=== PATIENT | female | born 1965 | race Caucasian/White ===

== ENCOUNTER 2016-02-15 15:41 | Inpatient (IN) | payer MEDICARE, MEDICAID ==
[~2016-02-15] VITALS: Ht 167.6 cm; Wt 92.3 kg
[~2016-02-15 15:41] MED LIST: ALPR0.5T7; BECL0.07; CALC667C; CALCIUM ACETATE 667 MG GELCAP; CARB25TA75; CARB25TA77 OR; CLOP75TA41; DIPH-232; DOCU1CAP24; FENO5TAB; FLUC200T35; FLUO-125; FLUO1TAB3; FLUO20TA; FURO40TA4; GABA300C; GABA300C8; HEPARIN; HYDR-2616; HYDRTAB57; LEVO200T45; LISI-646; LORA-205; LOVAZA; NIFE30TA76; NITR100C; OMEG1CAP10; OMEP20TA; OMEPRAZOLE DR 20 MG CAPSULE; PLAVIX; PRENCAP2; SERDISK; SEVE800T8; SEVE800T8 PO; VARE1TAB
[2016-02-15] MEDS ORDERED: SODIUM CHLORIDE 0.9% 1,000 ML IV ONE ×2 (16:23→23:45)
[2016-02-15] MEDS ORDERED: LEVOFLOXACIN 500 MG/100 ML PREMIX BAG IV ONE (16:30)
[2016-02-15 17:03] LABS: Basophils # (auto) 0.1 uL; Basophils % (auto) 0.3 % (0.0-2.0); DEFINITIVE VIEW TRANSMISSION; Eosinophils # (auto) 0.3 uL; Eosinophils % (auto) 1.6 % (0.0-7.0); Hematocrit 30.3 % (36.0-46.0); Hemoglobin 9.4 g/dL (12.2-16.2); Lymphocytes # (auto) 1.4 uL; Lymphocytes % (auto) 8.9 % (10.0-50.0); Mean Corpuscular Hemoglobin 30.4 pg (28.0-32.0); Mean Corpuscular Volume 97.9 fL (80.0-100.0); Mean Platelet Volume 7.3 fL (7.4-10.4); Monocytes # (auto) 0.8 uL; Monocytes % (auto) 4.8 % (0.0-12.0); Neutrophils # (auto) 13.8 uL; Neutrophils % (auto) 84.4 % (37.0-80.0); Platelet Count (auto) 500 10^3/uL (140-450); Red Cell Distribution Width 19.8 % (11.6-16.0); White Blood Cell 16.3 10^3/uL (4.4-10.8)
[2016-02-15 17:18] LABS: Albumin 2.3 g/dL (3.4-5.0); Anion Gap 11 (5-15); Aspartate Aminotransferase 18 U/L (15-37); BUN/Creatinine Ratio 5.8; Blood Urea Nitrogen 23 mg/dL (7-18); Calcium 8.6 mg/dL (8.5-10.1); Carbon Dioxide 30 mmol/L (21-32); Chloride 97 mmol/L (98-107); GFR African American 16 mL/min; GFR Non-African American 13 mL/min; Glucose 130 mg/dL (74-106); Potassium 3.7 mmol/L (3.5-5.1); Sodium 138 mmol/L (136-145)
[2016-02-15 17:21] LABS: Alkaline Phosphatase 129 U/L (45-117); Bilirubin, Total 0.7 mg/dL (0.2-1.0); Total Protein 6.2 g/dL (6.4-8.2)
[2016-02-15 17:39] LABS: Partial Thromboplastin Time 66.1 sec (22.64-33.71)
[2016-02-15 17:46] LABS: Anisocytosis Slight; Platelet Estimate Increased
[2016-02-15 17:47] LABS: Polychromasia Slight
[2016-02-15 17:57] LABS: Prothrombin Time 83.4 sec (9.37-12.3)
[2016-02-15 18:12] LABS: INR 8.1 (0.9-1.15)
[2016-02-15] MEDS ORDERED: ONDANSETRON HCL 4 MG/2 ML VIAL IV ONE (21:15)
[2016-02-15] MEDS ORDERED: MORPHINE SULFATE 4 MG/ML SYRG IV ONE (21:15)
[2016-02-15] MEDS ORDERED: HYDROcodone-ACET 10/325MG TAB PO ONE (21:30)
[2016-02-15] MEDS ORDERED: AZITHROMYCIN 500MG/D5W 250ML 250 ML IV ONE (23:45)
[2016-02-15] MEDS ORDERED: PANTOPRAZOLE SODIUM 40 MG/10 ML VIAL IV ONE (23:45)
[2016-02-15] MEDS: cefTRIAXone 1GM/50ML D5W 50 ML IV ONE (23:56)
[2016-02-15] MEDS: HYDROmorphone HCL 2 MG/ML VL IV PRN (23:59)
[2016-02-15] MEDS: ONDANSETRON HCL 4 MG/2 ML VIAL IV PRN (23:59)
[2016-02-16] MEDS ORDERED: LACTULOSE 20Gm/30ML SOLN PO PRN
[2016-02-16] MEDS ORDERED: MORPHINE SULF INJ 2 MG/ML SYRINGE 1ML IV PRN
[2016-02-16] MEDS ORDERED: NITROGLYCERIN 0.4 MG SL TAB SL PRN
[2016-02-16] MEDS: cefTRIAXone 1GM/50ML D5W 50 ML IV ONE (01:31)
[2016-02-16] MEDS: ALBUTEROL SULF 2.5 MG/0.5ML(0.5%) NEB SOLN NEB SCH ×6 (02:30→22:38)
[2016-02-16] MEDS: IPRATROPIUM BROM 0.5 MG/2.5ML INH SOL NEB SCH ×6 (02:30→22:38)
[2016-02-16 03:54] LABS: Basophils # (auto) 0.1 uL; Basophils % (auto) 0.5 % (0.0-2.0); DEFINITIVE VIEW TRANSMISSION; Eosinophils # (auto) 0.4 uL; Eosinophils % (auto) 2.4 % (0.0-7.0); Hematocrit 28.6 % (36.0-46.0); Hemoglobin 8.9 g/dL (12.2-16.2); Lymphocytes # (auto) 1.1 uL; Lymphocytes % (auto) 6.4 % (10.0-50.0); Mean Corpuscular Hemoglobin 30.3 pg (28.0-32.0); Mean Corpuscular Volume 97.6 fL (80.0-100.0); Mean Platelet Volume 7.1 fL (7.4-10.4); Monocytes # (auto) 0.6 uL; Monocytes % (auto) 3.4 % (0.0-12.0); Neutrophils # (auto) 14.4 uL; Neutrophils % (auto) 87.3 % (37.0-80.0); Platelet Count (auto) 447 10^3/uL (140-450); SUSPECT VIEW TRANSMISSION; White Blood Cell 16.5 10^3/uL (4.4-10.8)
[2016-02-16 04:11] LABS: Anion Gap 11 (5-15); Aspartate Aminotransferase 16 U/L (15-37); BUN/Creatinine Ratio 6.1; Blood Urea Nitrogen 26 mg/dL (7-18); Calcium 8.2 mg/dL (8.5-10.1); Carbon Dioxide 28 mmol/L (21-32); Chloride 99 mmol/L (98-107); GFR African American 14 mL/min; GFR Non-African American 12 mL/min; Glucose 155 mg/dL (74-106); Potassium 3.7 mmol/L (3.5-5.1); Sodium 138 mmol/L (136-145)
[2016-02-16 04:33] LABS: Red Cell Distribution Width 20.3 % (11.6-16.0)
[2016-02-16 05:17] LABS: Prothrombin Time 73.2 sec (9.37-12.3)
[2016-02-16 05:19] LABS: INR 7.11 (0.9-1.15); Partial Thromboplastin Time 74.5 sec (22.64-33.71)
[2016-02-16 05:24] LABS: Alkaline Phosphatase 118 U/L (45-117); Bilirubin, Total 0.6 mg/dL (0.2-1.0); Total Protein 5.8 g/dL (6.4-8.2)
[2016-02-16 05:33] LABS: Cholesterol 61 mg/dL (<200); LDL Cholesterol 37 mg/dL (<100); Triglycerides 121 mg/dL (<150)
[2016-02-16] MEDS ORDERED: PHYTONADIONE (VIT K)10 MG/ML 1ML VIAL SUBCUT ONE (05:45)
[2016-02-16] MEDS: ONDANSETRON HCL 4 MG/2 ML VIAL IV PRN ×2 (07:51→16:20)
[2016-02-16 08:24] LABS: Anisocytosis Moderate; Platelet Estimate Adequate
[2016-02-16 08:25] LABS: Polychromasia Slight; Schistocytes FEW
[2016-02-16] MEDS: FLUoxetine HCL 20 MG CAP PO SCH (10:00)
[2016-02-16] MEDS: PANTOPRAZOLE SODIUM 40 MG/10 ML VIAL IV SCH (10:11)
[2016-02-16 10:48] VITALS: BP 102/56
[2016-02-16] MEDS ORDERED: ALBUMIN 25% 200 ML IV ONE (11:46)
[2016-02-16 11:54] LABS: HDL Cholesterol 18 mg/dL (40-59)
[2016-02-16] MEDS: ALBUMIN 25% 100 ML IV SCH ×2 (11:54→14:33)
[2016-02-16] MEDS ORDERED: metroNIDAZOLE 500 MG TAB PO ONE (14:45)
[2016-02-16] MEDS: HYDROmorphone HCL 2 MG/ML VL IV PRN ×2 (16:21→22:47)
[2016-02-16 16:53] VITALS: BP 104/53
[2016-02-16 17:00] VITALS: BP 102/53
[2016-02-16] MEDS ORDERED: AZITHROMYCIN 500MG/D5W 250ML 250 ML IV SCH (21:00)
[2016-02-16] MEDS ORDERED: cefTRIAXone 1GM/50ML D5W 50 ML IV SCH (21:00)
[2016-02-16] MEDS: CARB PO SCH ×2 (22:00→22:07)
[2016-02-16] MEDS: LEVODOPA PO SCH ×2 (22:00→22:07)
[2016-02-16] MEDS: ATORVASTATIN 20 MG TAB PO SCH ×2 (22:00→22:06)
[2016-02-16 22:02] VITALS: BP 97/58
[2016-02-16] MEDS: metroNIDAZOLE 500 MG TAB PO SCH (22:07)
[2016-02-17] MEDS: ALPRAZolam 0.5 MG TAB PO PRN ×2 (01:52→14:20)
[2016-02-17] MEDS: ALBUTEROL SULF 2.5 MG/0.5ML(0.5%) NEB SOLN NEB SCH ×6 (02:50→22:45)
[2016-02-17] MEDS: IPRATROPIUM BROM 0.5 MG/2.5ML INH SOL NEB SCH ×6 (02:50→22:45)
[2016-02-17 05:26] VITALS: BP 90/63
[2016-02-17] MEDS: metroNIDAZOLE 500 MG TAB PO SCH ×3 (05:31→21:53)
[2016-02-17] MEDS: CARB PO SCH ×4 (05:31→21:53)
[2016-02-17] MEDS: LEVODOPA PO SCH ×4 (05:31→21:53)
[2016-02-17 09:00] VITALS: BP 115/66
[2016-02-17] MEDS: PANTOPRAZOLE SODIUM 40 MG/10 ML VIAL IV SCH (09:47)
[2016-02-17] MEDS: HYDROmorphone HCL 2 MG/ML VL IV PRN ×3 (09:47→22:18)
[2016-02-17] MEDS: FLUoxetine HCL 20 MG CAP PO SCH (09:47)
[2016-02-17] MEDS: VANCOMYCIN HCL 125MG/5ML ORAL SOL PO SCH ×3 (12:28→21:54)
[2016-02-17 12:44] VITALS: BP 118/70
[2016-02-17] MEDS: PIPERACILLIN-TAZOB 2.25GM 50 ML IV SCH (13:21)
[2016-02-17 16:32] VITALS: BP 148/68
[2016-02-17] MEDS ORDERED: HYDROcodone-ACET 10/325MG TAB PO PRN (17:00)
[2016-02-17] MEDS: ONDANSETRON HCL 4 MG/2 ML VIAL IV PRN (17:53)
[2016-02-17] MEDS: ATORVASTATIN 20 MG TAB PO SCH (21:53)
[2016-02-17 22:00] VITALS: BP 158/80
[2016-02-18] MEDS: ONDANSETRON HCL 4 MG/2 ML VIAL IV PRN (00:37)
[2016-02-18] MEDS: PIPERACILLIN-TAZOB 2.25GM 50 ML IV SCH ×2 (00:40→13:21)
[2016-02-18] MEDS: ALPRAZolam 0.5 MG TAB PO PRN ×2 (02:15→20:22)
[2016-02-18] MEDS: IPRATROPIUM BROM 0.5 MG/2.5ML INH SOL NEB SCH ×6 (02:54→22:24)
[2016-02-18] MEDS: ALBUTEROL SULF 2.5 MG/0.5ML(0.5%) NEB SOLN NEB SCH ×6 (02:54→22:24)
[2016-02-18] MEDS: HYDROmorphone HCL 2 MG/ML VL IV PRN ×3 (04:46→14:35)
[2016-02-18 05:00] VITALS: BP 160/74
[2016-02-18] MEDS: LEVODOPA PO SCH ×4 (05:28→22:16)
[2016-02-18] MEDS: CARB PO SCH ×4 (05:28→22:16)
[2016-02-18] MEDS: metroNIDAZOLE 500 MG TAB PO SCH ×3 (05:28→22:16)
[2016-02-18] MEDS: VANCOMYCIN HCL 125MG/5ML ORAL SOL PO SCH ×4 (05:29→22:15)
[2016-02-18 06:41] LABS: Basophils # (auto) 0 uL; Basophils % (auto) 0.3 % (0.0-2.0); DEFINITIVE VIEW TRANSMISSION; Eosinophils # (auto) 0.5 uL; Eosinophils % (auto) 5.4 % (0.0-7.0); Hematocrit 26.3 % (36.0-46.0); Hemoglobin 8.3 g/dL (12.2-16.2); Lymphocytes # (auto) 1.2 uL; Lymphocytes % (auto) 13.4 % (10.0-50.0); Mean Corpuscular Hemoglobin 30.5 pg (28.0-32.0); Mean Corpuscular Hgb Conc. 31.6 g/dL (32.0-36.0); Mean Corpuscular Volume 96.5 fL (80.0-100.0); Mean Platelet Volume 6.1 fL (7.4-10.4); Monocytes # (auto) 0.7 uL; Monocytes % (auto) 7.6 % (0.0-12.0); Neutrophils # (auto) 6.4 uL; Neutrophils % (auto) 73.3 % (37.0-80.0); Platelet Count (auto) 337 10^3/uL (140-450); White Blood Cell 8.8 10^3/uL (4.4-10.8)
[2016-02-18 07:03] LABS: INR 1.39 (0.9-1.15); Prothrombin Time 14.3 sec (9.37-12.3)
[2016-02-18 07:04] LABS: Chloride 99 mmol/L (98-107); Potassium 3.7 mmol/L (3.5-5.1); Sodium 137 mmol/L (136-145)
[2016-02-18 07:14] LABS: Albumin 2.5 g/dL (3.4-5.0); Alkaline Phosphatase 119 U/L (45-117); Anion Gap 11 (5-15); Aspartate Aminotransferase 10 U/L (15-37); Bilirubin, Total 0.6 mg/dL (0.2-1.0); Blood Urea Nitrogen 25 mg/dL (7-18); Carbon Dioxide 27 mmol/L (21-32); GFR African American 15 mL/min; GFR Non-African American 12 mL/min; Glucose 160 mg/dL (74-106); Magnesium 2.3 mg/dL (1.6-2.6); Total Protein 5.8 g/dL (6.4-8.2)
[2016-02-18 07:18] LABS: Red Cell Distribution Width 20.7 % (11.6-16.0)
[2016-02-18 07:39] LABS: Anisocytosis Moderate; Large Platelets FEW; Platelet Estimate Adequa
[2016-02-18 07:40] LABS: Polychromasia Slight; Schistocytes FEW
[2016-02-18] MEDS: SEVELAMER 800 MG TAB PO SCH ×3 (08:29→18:18)
[2016-02-18 09:03] VITALS: BP 130/68
[2016-02-18] MEDS: FLUoxetine HCL 20 MG CAP PO SCH (09:39)
[2016-02-18] MEDS: PANTOPRAZOLE SODIUM 40 MG/10 ML VIAL IV SCH (09:39)
[2016-02-18] MEDS: ALBUMIN 25% 100 ML IV SCH ×2 (10:34→10:43)
[2016-02-18] MEDS ORDERED: SODIUM CHL 0.9% 1000 ML BAG XX ONE (11:00)
[2016-02-18] MEDS ORDERED: EPOETIN ALFA 10,000 UNIT/1 ML VIAL IV ONE (11:00)
[2016-02-18 11:48] VITALS: BP 135/78
[2016-02-18 13:20] VITALS: BP 131/72
[2016-02-18 16:46] VITALS: BP 121/63
[2016-02-18] MEDS: PRO-STAT 64 30ML PO SCH (18:18)
[2016-02-18 21:46] VITALS: BP 149/83
[2016-02-18] MEDS: ATORVASTATIN 20 MG TAB PO SCH (22:16)
[2016-02-19] MEDS: PIPERACILLIN-TAZOB 2.25GM 50 ML IV SCH ×2 (00:38→13:32)
[2016-02-19] MEDS: ALBUTEROL SULF 2.5 MG/0.5ML(0.5%) NEB SOLN NEB SCH ×4 (02:35→14:09)
[2016-02-19] MEDS: IPRATROPIUM BROM 0.5 MG/2.5ML INH SOL NEB SCH ×4 (02:35→14:08)
[2016-02-19 05:00] VITALS: BP 151/76
[2016-02-19] MEDS: CARB PO SCH ×2 (06:02→12:04)
[2016-02-19] MEDS: VANCOMYCIN HCL 125MG/5ML ORAL SOL PO SCH ×2 (06:02→12:03)
[2016-02-19] MEDS: LEVODOPA PO SCH ×2 (06:02→12:04)
[2016-02-19] MEDS: metroNIDAZOLE 500 MG TAB PO SCH ×2 (06:02→14:32)
[2016-02-19] MEDS: PRO-STAT 64 30ML PO SCH (08:13)
[2016-02-19] MEDS: SEVELAMER 800 MG TAB PO SCH ×2 (08:13→12:03)
[2016-02-19 08:49] VITALS: BP 142/71
[2016-02-19] MEDS: FLUoxetine HCL 20 MG CAP PO SCH (09:17)
[2016-02-19] MEDS: PANTOPRAZOLE SODIUM 40 MG/10 ML VIAL IV SCH (09:31)
[2016-02-19 13:00] VITALS: BP 151/74
[2016-02-19] MEDS: ONDANSETRON HCL 4 MG/2 ML VIAL IV PRN (15:18)
[2016-02-19] MEDS: HYDROmorphone HCL 2 MG/ML VL IV PRN (15:18)
== END 2016-02-19 15:50 | DRG 871 ==
LOC: EDUNIT# 15:41 → ER 15:42 → ICU CENTRL 15:43 → TELE 02-16 14:48 → TELE-WESTW 02-16 16:10
PROVIDERS: ADMIT Family Medicine; ATTEND Internal Medicine
PROC: 5A1D00Z (ICD-10-PCS; principal; 2016-02-16)
DX: A41.9 Sepsis, unspecified organism (principal); N18.6 End stage renal disease; G93.41 Metabolic encephalopathy; J18.9 Pneumonia, unspecified organism; E43 Unspecified severe protein-calorie malnutrition; I13.2 Hypertensive heart and chronic kidney disease with heart failure and with stage 5 chronic kidney disease, or end stage renal disease; J44.0 Chronic obstructive pulmonary disease with (acute) lower respiratory infection; D68.59 Other primary thrombophilia; A04.7 Enterocolitis due to Clostridium difficile; R65.20 Severe sepsis without septic shock; M19.90 Unspecified osteoarthritis, unspecified site; I50.9 Heart failure, unspecified; D63.8 Anemia in other chronic diseases classified elsewhere; I25.10 Atherosclerotic heart disease of native coronary artery without angina pectoris; E11.22 Type 2 diabetes mellitus with diabetic chronic kidney disease; F32.9 Major depressive disorder, single episode, unspecified; F41.9 Anxiety disorder, unspecified; F17.210 Nicotine dependence, cigarettes, uncomplicated; I73.9 Peripheral vascular disease, unspecified; I48.0 Paroxysmal atrial fibrillation; E78.5 Hyperlipidemia, unspecified; E03.9 Hypothyroidism, unspecified; G62.9 Polyneuropathy, unspecified; E86.0 Dehydration; E11.649 Type 2 diabetes mellitus with hypoglycemia without coma; Z88.8 Allergy status to other drugs, medicaments and biological substances; Z88.2 Allergy status to sulfonamides; Z95.1 Presence of aortocoronary bypass graft; Z89.512 Acquired absence of left leg below knee; Z90.49 Acquired absence of other specified parts of digestive tract; Z90.710 Acquired absence of both cervix and uterus; Z68.32 Body mass index [BMI] 32.0-32.9, adult; Z83.3 Family history of diabetes mellitus; Z82.49 Family history of ischemic heart disease and other diseases of the circulatory system; Z99.2 Dependence on renal dialysis; Z79.899 Other long term (current) drug therapy
CPT/HCPCS: 36415; 36600; 71010; 80053; 80061; 82805; 83605; 83735; 84443; 84484; 85025; 85379; 85610; 85730; 87040; 87081; 87493; 90935; 93005; 94640; 96374; 96375; 97001; C9113; J0696; J0885; J1642; J1956; J2405; J2543; J3430

== ENCOUNTER 2018-04-19 11:14 | Inpatient (IN) | payer MEDICARE, MEDICAID ==
[~2018-04-19] VITALS: Ht 162.6 cm; Wt 89.5 kg
[~2018-04-19 11:14] MED LIST changes: -CALC667C; -FLUC200T35; -FLUO1TAB3; -FLUO20TA; +GABA300C10; -GABA300C8; -HEPARIN; -LEVO200T45; +LEVO200T7; -NITR100C
[2018-04-19 13:06] LABS: Basophils # (auto) 0.1 uL; Basophils % (auto) 0.9 % (0.0-2.0); Eosinophils # (auto) 0.1 uL; Eosinophils % (auto) 1.8 % (0.0-7.0); Hematocrit 34.4 % (36.0-46.0); Hemoglobin 11.3 g/dL (12.2-16.2); Lymphocytes % (auto) 15.1 % (10.0-50.0); Mean Corpuscular Hemoglobin 30.1 pg (28.0-32.0); Mean Corpuscular Hgb Conc. 32.8 g/dL (32.0-36.0); Mean Corpuscular Volume 91.8 fL (80.0-100.0); Monocytes # (auto) 0.9 uL; Monocytes % (auto) 12.6 % (0.0-12.0); Neutrophils # (auto) 4.8 uL; Neutrophils % (auto) 69.6 % (37.0-80.0); Platelet Count (auto) 244 10^3/uL (140-450); Red Blood Cells 3.74 10^6/uL (4.0-5.20); Red Cell Distribution Width 17.9 % (11.8-14.3); White Blood Cell 6.9 10^3/uL (4.4-10.8)
[2018-04-19 13:22] LABS: Albumin 2.8 g/dL (3.4-5.0); BUN/Creatinine Ratio 7.7; Calcium 8.1 mg/dL (8.5-10.1)
[2018-04-19 13:24] LABS: Bilirubin, Total 1.3 mg/dL (0.2-1.0); Total Protein 7.9 g/dL (6.4-8.2)
[2018-04-19 13:28] LABS: Potassium 5.9 mmol/L (3.5-5.1)
[2018-04-19] MEDS ORDERED: SODIUM CHLORIDE 0.9% 1,000 ML IV ONE (15:41)
[2018-04-19 16:19] LABS: Magnesium 2.7 mg/dL (1.6-2.6)
[2018-04-19] MEDS ORDERED: PROMETHAZINE HCL 25 MG/ML 1ML IV ONE (19:00)
[2018-04-19] MEDS ORDERED: MORPHINE SULFATE 4 MG/ML SYR/VIAL IV ONE (19:00)
[2018-04-19] MEDS ORDERED: TEMAZEPAM 15 MG CAP PO PRN (20:45)
[2018-04-19] MEDS ORDERED: ONDANSETRON HCL 4 MG/2 ML VIAL IV PRN (20:45)
[2018-04-19] MEDS ORDERED: DEXTROSE (50%) 50ML SYRG IV PRN (20:45)
[2018-04-19] MEDS ORDERED: cefTRIAXone 1GM/50ML D5W 50 ML IV ONE (20:45)
[2018-04-19] MEDS ORDERED: AZITHROMYCIN 500MG/ 250ML 250 ML IV ONE (22:00)
[2018-04-19 22:13] VITALS: BP 147/60
--- NOTE | 2018-04-19 22:13 | NUR ---
MS admit from ER LEANN VIEIRA admitted to MS. Patient oriented to RUFINO DENTON RN primary RN, unit, room, bed, and unit policies regarding patient care and visiting hours. Patient weighed by bedscale and encouraged to call if they need something. All questions and concerns addressed, patient verbalized understanding.
[2018-04-19 23:10] LABS: INR 1.06 (0.9-1.15); Partial Thromboplastin Time 33.3 sec (23.78-33.04); Prothrombin Time 11.3 sec (9.27-12.13)
[2018-04-19] MEDS: ATORVASTATIN 20 MG TAB PO SCH (23:12)
[2018-04-19] MEDS: GABAPENTIN 300 MG CAP PO SCH (23:12)
[2018-04-19] MEDS: CARBIDOPA W LEVODOPA 25/100mg TABLET PO SCH (23:12)
[2018-04-19] MEDS: HYDROcodone-ACET 5/325MG TAB PO PRN (23:13)
--- NOTE | 2018-04-19 23:40 | NUR ---
Critical Potassium 6.3 Will page hospitalist.
--- NOTE | 2018-04-20 | NUR ---
Hospitalist paged Re: Critical potassium of 6.3 Waiting for call back. Continue care.
[2018-04-20] MEDS: ACCU-CHEK COMFORT CURVE STRIP VI SCH ×4 (00:07→18:00)
[2018-04-20] MEDS: InsuLIN REG 1unit/0.01ml Soln (100units/ml) SC SCH ×4 (00:07→18:00)
--- NOTE | 2018-04-20 00:17 | NUR ---
Hospitalist returned call SEWAGE TREATMENT PLANT OPERATOR Rehan returned call, updated on patient status and reason for call. No New orders. SEWAGE TREATMENT PLANT OPERATOR will check patient chart. Continue care.
[2018-04-20] MEDS ORDERED: CALCIUM GLUC 4.65meq/50ml D5AE 50 ML IV ONE ×2 (00:30→08:45)
[2018-04-20] MEDS ORDERED: SODIUM BICARBONATE 8.4 % INJ 50ML VIAL IV ONE ×2 (00:30→08:45)
[2018-04-20] MEDS ORDERED: DEXTROSE (50%) 50ML SYRG IV ONE ×2 (00:30→08:45)
[2018-04-20] MEDS ORDERED: InsuLIN REG 1unit/0.01ml Soln (100units/ml) IV ONE ×2 (00:30→08:45)
[2018-04-20] MEDS ORDERED: SODIUM POLYSTYRENE SULF 15GM/60ml SUSP or POWDER PO ONE ×2 (00:30→08:45)
--- NOTE | 2018-04-20 02:00 | NUR ---
Placed on tele monitor per protocol for calcium gluconate administration.
--- NOTE | 2018-04-20 03:01 | NUR ---
Rounds Patient in bed asleep with breathing even and unlabored. Tele reads sinus rhythm at 72bpm. Will continue to monitor.
[2018-04-20 04:50] VITALS: BP 123/58
--- NOTE | 2018-04-20 05:21 | NUR ---
Hospitalist Called/paged DANA Van called re: clarification about admit order to med surg vs recommending tele admit on notes. CREDIT ADMINISTRATION MANAGER ordered to keep patient on med surg. Continue care.
[2018-04-20] MEDS: HYDROcodone-ACET 5/325MG TAB PO PRN (06:00)
[2018-04-20] MEDS: CARBIDOPA W LEVODOPA 25/100mg TABLET PO SCH ×3 (06:27→23:06)
[2018-04-20 07:09] LABS: Basophils # (auto) 0.1 uL; Basophils % (auto) 0.9 % (0.0-2.0); Eosinophils # (auto) 0.3 uL; Eosinophils % (auto) 3.7 % (0.0-7.0); Hematocrit 34.2 % (36.0-46.0); Hemoglobin 11.2 g/dL (12.2-16.2); Lymphocytes # (auto) 1.6 uL; Lymphocytes % (auto) 21.9 % (10.0-50.0); Mean Corpuscular Hemoglobin 29.9 pg (28.0-32.0); Mean Corpuscular Hgb Conc. 32.6 g/dL (32.0-36.0); Monocytes # (auto) 0.8 uL; Monocytes % (auto) 11.1 % (0.0-12.0); Neutrophils # (auto) 4.5 uL; Neutrophils % (auto) 62.4 % (37.0-80.0); Nucleated Red Blood Cells % 0.1 %; Platelet Count (auto) 226 10^3/uL (140-450); Red Blood Cells 3.72 10^6/uL (4.0-5.20); Red Cell Distribution Width 17.6 % (11.8-14.3); White Blood Cell 7.2 10^3/uL (4.4-10.8)
--- NOTE | 2018-04-20 07:25 | NUR ---
Tele box returned to [facility].
--- NOTE | 2018-04-20 07:30 | NUR ---
Endorsed care to day shift RN. Patient in bed asleep with no signs of distress.
[2018-04-20 07:45] LABS: Albumin 2.6 g/dL (3.4-5.0); Calcium 8.3 mg/dL (8.5-10.1)
[2018-04-20 07:50] LABS: BUN/Creatinine Ratio 8.6; Bilirubin, Total 1.3 mg/dL (0.2-1.0); Total Protein 7.4 g/dL (6.4-8.2)
[2018-04-20 07:58] LABS: Potassium 6.2 mmol/L (3.5-5.1)
--- NOTE | 2018-04-20 08:12 | NUR ---
CRITICAL LAB lab called with critical potassium of 6.2. hospitalist paged. will continue to monitor.
[2018-04-20 08:29] VITALS: BP 149/77
[2018-04-20] MEDS: SEVELAMER 800 MG TAB PO SCH ×3 (10:03→18:00)
[2018-04-20] MEDS ORDERED: MORPHINE SULFATE 4 MG/ML SYR/VIAL IV ONE ×2 (10:15→18:15)
[2018-04-20] MEDS: cefTRIAXone 1GM/50ML D5W 50 ML IV SCH (10:22)
[2018-04-20] MEDS: PANTOPRAZOLE 40 MG TAB PO SCH (10:23)
[2018-04-20] MEDS: CLOPIDOGREL BISULFATE 75 MG TAB PO SCH (10:23)
[2018-04-20] MEDS: GABAPENTIN 300 MG CAP PO SCH ×2 (10:24→23:06)
[2018-04-20] MEDS: LISINOPRIL 10 MG TAB PO SCH (10:26)
[2018-04-20] MEDS: NIFEdipine ER 30 MG TAB PO SCH (10:26)
--- NOTE | 2018-04-20 12:48 | NUR ---
WOUND CARE NOTE: Wound care in to see patient per wound care request regarding " pressure ulcer on sacrum" that are noted present on admission. Bedside nurse took photograph of patient's wound upon admission for reference. Patient is 52 years old female with admitting diagnosis of Rt. Lobe Pneumonia. Patient is resting in bed in Rm. 215A. She's awake, alert and oriented. Patient is in no stated pain at this time. She's able to assist in turning and repositioning. Her current Robby score is 14. Skin assessment done with the assistance of patient' s nurse, RAMON Patricio. Noted patient's medial sacrum has pink collagen scar tissue with 0.5x0.5cm open full thickness pressure injury with no measurable depth. Wound is red with yellow slough, clair wound is pink, no drainage/odor noted. Patient states she has had the sacral pressure injury "for a longtime" that would close and reopen. She also added that wound complicates with long sitting in Dialysis center. Patient skin/wound education given, verbalized understanding. Clair care given, applied Thera honey gel to small open wound at coccyx, covered with non-adhesive Opti foam and secured with Paper tape. Анна FLYNN has well healed stump. Repositioned for comfort, redistributed pressure points with pillows. Patient tolerated well. Bed in low position, call nielson on hand, all safety precautions in placed. RECOMMENDATION: Daily/PRN dressing change to sacral/coccyx pressure injury per MD order,Dietary consult, frequent turning and repositioning schedule as condition permits, redistribute pressure points with pillows, continue monitoring by wound care while patient is hospitalized. Addendum: 04/20/18 at 1519 by Eliza Sinclair RN Amended: Links added.
--- NOTE | 2018-04-20 12:54 | NUR ---
Nutrition Assessment/consult Notes Please see attached link for complete assessment Est. Needs based on BW (72 kg): 6062-3882 kcal (27-30 kcal/kgBW), 86-93 gms pro (1.2-1.3 gms/kgBW r/t HD wounds). Will continue to monitor pertinent labs and reassess nutrient needs prn Addendum: 04/20/18 at [address] Amended: Links added.
[2018-04-20 13:38] VITALS: BP 111/74
--- NOTE | 2018-04-20 15:05 | NUR ---
CHAPERONED DR. BAIRES INTO PTS ROOM
[2018-04-20 17:18] VITALS: BP 113/49
[2018-04-20] MEDS: Nepro With Carbsteady ButterPecan 8oz Carton PO SCH (18:00)
[2018-04-20] MEDS ORDERED: LORazepam 2MG/ML-1ML VIAL IV PRN (18:15)
[2018-04-20] MEDS ORDERED: FLUCONAZOLE 100 MG TAB PO ONE (18:15)
[2018-04-20 19:08] LABS: Cholesterol 136 mg/dL (< 200); Triglycerides 114 mg/dL (< 150)
[2018-04-20 19:11] LABS: HDL Cholesterol 17 mg/dL (40-59); LDL Cholesterol 97 mg/dL (< 100)
--- NOTE | 2018-04-20 19:30 | NUR ---
Opening Shift Note Assumed care of patient,asleep, easily arousable, oriented x4. Very lethargic. No S/S of distress/SOB or pain. IV to R hand patent.Unable to move her right arm much and complains of pain when we reposition that arm whatsoever. Dinner tray at bedsid. Too sleepy to eat at this time. Instructed on POC and to call for assist PRN, will continue to monitor for changes Q1hr and PRN.
[2018-04-20 22:00] VITALS: BP 108/61
[2018-04-20] MEDS: ASCORBIC ACID 500 MG TAB PO SCH (23:06)
[2018-04-20] MEDS: ATORVASTATIN 20 MG TAB PO SCH (23:07)
[2018-04-20] MEDS: AZITHROMYCIN 500MG/ 250ML 250 ML IV SCH (23:08)
--- NOTE | 2018-04-21 | NUR ---
Nile Van regarding wether patient should be on tele and not med/surg due to her extensive problems/comorbitites. Also needed an order for follow up labs since she was dialyzed today with no f/u ordered.
[2018-04-21] MEDS: ACCU-CHEK COMFORT CURVE STRIP VI SCH ×4 (00:24→17:48)
[2018-04-21] MEDS: InsuLIN REG 1unit/0.01ml Soln (100units/ml) SC SCH ×4 (00:24→17:49)
--- NOTE | 2018-04-21 01:00 | NUR ---
New order for CMP for am. Continues on med/surg per paige.
--- NOTE | 2018-04-21 02:00 | NUR ---
Assisted patient on the bed osullivan, but kept falling asleep. Very tired and lethargic. Changed gown and linens. Gave snacks per request and coffee. Did not eat dinner due to sleeping
--- NOTE | 2018-04-21 02:30 | NUR ---
Patient requesting morphine for her pain. Takes 15 mg morphine ER q12 at home. Will page Rehan and request at 0300. Shes only been getting one time orders
[2018-04-21] MEDS ORDERED: MORP60TA25 PO (02:48)
[2018-04-21] MEDS: HYDROcodone-ACET 5/325MG TAB PO PRN (02:51)
[2018-04-21] MEDS ORDERED: MORPHINE SULFATE 4 MG/ML SYR/VIAL IV ONE (04:00)
[2018-04-21 05:00] VITALS: BP 127/69
--- NOTE | 2018-04-21 06:19 | NUR ---
Placed on bedpan multiple times and patient would fall asleep. Requested that I take off the dressing on her bottom, stated " it doan really bad, Im allergic to all adhesive. " Would not let me put another one on. No redness/rash noted where tape was. Stage II now open to air, small amount of yellow drainage from wound. No foul odor. Call light within reach
[2018-04-21] MEDS: CARBIDOPA W LEVODOPA 25/100mg TABLET PO SCH ×3 (06:44→22:48)
--- NOTE | 2018-04-21 07:02 | NUR ---
Patient wants her morphine and xanax continued from home. C/O 10/10 pain through out night and is unable to move her right arm very much.Call light within reach of left arm. Linens and gown changed.
--- NOTE | 2018-04-21 07:30 | NUR ---
Opening Shift Note Received report from Elen NAVARRO. Assumed care of patient, awake and alert. No S/S of distress/SOB. Reported generalized pain, does not want [place]. Will inform the doctor about the morphine per patient's demand. Instructed on POC and to call for assist PRN, will continue to monitor for changes Q1hr and PRN.
[2018-04-21 08:00] VITALS: BP 132/69
[2018-04-21] MEDS: cefTRIAXone 1GM/50ML D5W 50 ML IV SCH (08:26)
[2018-04-21] MEDS: SEVELAMER 800 MG TAB PO SCH ×3 (08:26→17:48)
[2018-04-21] MEDS: Nepro With Carbsteady ButterPecan 8oz Carton PO SCH ×2 (08:26→17:48)
--- NOTE | 2018-04-21 08:40 | NUR ---
Dr. Jovel and Dr Marlene Morin at bedside. Received verbal order from Dr. Morin to give patient lactulose 30ml PO x1 now and then daily at HS.
[2018-04-21 08:41] LABS: Albumin 2.4 g/dL (3.4-5.0); Calcium 8.2 mg/dL (8.5-10.1); Potassium 4.6 mmol/L (3.5-5.1)
[2018-04-21 08:44] LABS: BUN/Creatinine Ratio 7.2; Bilirubin, Total 1.3 mg/dL (0.2-1.0); Total Protein 7.1 g/dL (6.4-8.2)
[2018-04-21] MEDS ORDERED: LACTULOSE 20Gm/30ML SOLN PO ONE (08:45)
--- NOTE | 2018-04-21 08:49 | NUR ---
CHAPERONED DR. BAIRES INTO PTS ROOM
--- NOTE | 2018-04-21 09:53 | NUR ---
RECEIVED VERBAL ORDER FROM DR. Marlene BAIRES NOT TO GIVE THE ORDERED DIFLUCAN PO X1 THAT MISSED TO GIVE YESTERDAY BY THE NURSE.
[2018-04-21] MEDS: MORPHINE SULFATE 4 MG/ML SYR/VIAL IV PRN (09:56)
[2018-04-21] MEDS: PANTOPRAZOLE 40 MG TAB PO SCH (09:57)
[2018-04-21] MEDS: LISINOPRIL 10 MG TAB PO SCH (09:57)
[2018-04-21] MEDS: B-COMPLEX W/ C & FOLIC ACID(NEPHROVITE TAB) PO SCH (09:57)
[2018-04-21] MEDS: CLOPIDOGREL BISULFATE 75 MG TAB PO SCH (09:58)
[2018-04-21] MEDS: GABAPENTIN 300 MG CAP PO SCH ×2 (09:58→22:48)
[2018-04-21] MEDS: Pro-Stat SF 30ml Vanilla PO SCH (09:58)
[2018-04-21] MEDS: ASCORBIC ACID 500 MG TAB PO SCH ×2 (09:58→22:48)
[2018-04-21] MEDS: NIFEdipine ER 30 MG TAB PO SCH (09:59)
--- NOTE | 2018-04-21 14:00 | NUR ---
ECHO ONGOING AT BEDSIDE.
--- NOTE | 2018-04-21 14:45 | NUR ---
ECHO DONE. RIVET HAMMER MACHINE OPERATOR KANDICE AND COTTON PRESSER MYNOR AT BEDSIDE, TAKEN PATIENT TO MRI VIA STRETCHER.
--- NOTE | 2018-04-21 15:15 | NUR ---
MRI DONE. PATIENT IS BACK TO ROOM BY BED ASSISTED BY 2 TECHS.
[2018-04-21 17:00] VITALS: BP 138/70
--- NOTE | 2018-04-21 17:00 | NUR ---
SPOKE WITH FAMILY. FAMILY DOES NOT WANT AGGRESSIVE P.T. UNTIL MEDICAL CONDITION STABILIZES.
--- NOTE | 2018-04-21 19:30 | NUR ---
PATIENT SLEEPING AND VERY LETHARGIC. SISTER AT BEDSIDE WITH MANY CONCERNS. INSTRUCTED THAT WE DONT GIVE HER ANY ATIVAN DUE TO HER DIALYSIS AND CAUSING DELUSIONS AND HALLUCINATIONS. BINDERY CUTTER OPERATOR TOOK PATIENT OFF THE BEDPAN AND CLEANED HER UP. HAVING LOOSE STOOL X4. UPDATED ON POC. WILL NOTIFY OF LEONIE. REQUESTING XANAX INSTEAD WHICH SHE TAKES AT HOME.BED LOW AND CALL LIGHT WITHIN REACH
[2018-04-21 22:00] VITALS: BP 113/61
[2018-04-21] MEDS: ATORVASTATIN 20 MG TAB PO SCH (22:47)
[2018-04-21] MEDS: AZITHROMYCIN 500MG/ 250ML 250 ML IV SCH (22:47)
[2018-04-22] MEDS: InsuLIN REG 1unit/0.01ml Soln (100units/ml) SC SCH ×5 (00:06→23:57)
[2018-04-22] MEDS: ACCU-CHEK COMFORT CURVE STRIP VI SCH ×5 (00:06→23:57)
[2018-04-22] MEDS: MORPHINE SULFATE 4 MG/ML SYR/VIAL IV PRN ×4 (01:18→21:14)
[2018-04-22] MEDS: CARBIDOPA W LEVODOPA 25/100mg TABLET PO SCH ×2 (05:32→14:00)
[2018-04-22 05:42] VITALS: BP 94/64
[2018-04-22] MEDS ORDERED: SODIUM CHL 0.9% 1000 ML BAG XX ONE (07:00)
--- NOTE | 2018-04-22 07:00 | NUR ---
Dialysis nurse present. Report given to her and to RAMON Garces. Informed of BP 94/64 this am amd then 107/65 recheck. No further meds given. Tolerated Morphine 2 mg for c/o abdominal pain. No further lethargy tonight since previous shift.
--- NOTE | 2018-04-22 07:30 | NUR ---
Report received. Dialysis in progress. Patient has no complaints at this time. Call light in reach. Will continue to monitor.
[2018-04-22] MEDS: SEVELAMER 800 MG TAB PO SCH ×3 (08:00→18:03)
--- NOTE | 2018-04-22 08:16 | NUR ---
BUILDER BEAM DR. Marlene BAIRES
[2018-04-22 08:26] LABS: Alanine Aminotransferase < 6 U/L (13-56); Albumin 2.3 g/dL (3.4-5.0); Anion Gap 9 (5-15); Aspartate Aminotransferase 13 U/L (15-37); BUN/Creatinine Ratio 7.3; Blood Urea Nitrogen 23 mg/dL (7-18); Carbon Dioxide 30 mmol/L (21-32); Chloride 98 mmol/L (98-107); GFR African American 20 mL/min; GFR Non-African American 16 mL/min; Glucose 104 mg/dL (74-106); Potassium 3.2 mmol/L (3.5-5.1); Sodium 137 mmol/L (136-145)
--- NOTE | 2018-04-22 08:27 | NUR ---
in to see patient as hospitalist.
[2018-04-22 08:28] LABS: Alkaline Phosphatase 298 U/L (45-117); Bilirubin, Total 1.1 mg/dL (0.2-1.0); Total Protein 7.3 g/dL (6.4-8.2)
--- NOTE | 2018-04-22 09:45 | NUR ---
Dialysis completed. VS stable. Will continue to monitor.
[2018-04-22] MEDS: GABAPENTIN 300 MG CAP PO SCH ×2 (10:05→21:37)
[2018-04-22] MEDS: ASCORBIC ACID 500 MG TAB PO SCH ×2 (10:05→21:37)
[2018-04-22] MEDS: PANTOPRAZOLE 40 MG TAB PO SCH (10:05)
[2018-04-22] MEDS: cefTRIAXone 1GM/50ML D5W 50 ML IV SCH (10:05)
[2018-04-22] MEDS: CLOPIDOGREL BISULFATE 75 MG TAB PO SCH (10:05)
[2018-04-22] MEDS: NIFEdipine ER 30 MG TAB PO SCH (10:06)
[2018-04-22] MEDS: LISINOPRIL 10 MG TAB PO SCH (10:06)
[2018-04-22] MEDS: B-COMPLEX W/ C & FOLIC ACID(NEPHROVITE TAB) PO SCH (10:07)
[2018-04-22] MEDS: Pro-Stat SF 30ml Vanilla PO SCH (10:48)
[2018-04-22] MEDS: Nepro With Carbsteady ButterPecan 8oz Carton PO SCH ×2 (10:48→18:00)
[2018-04-22] MEDS: NICOTINE 21MG/24 HR TOPICAL PATCH TD SCH (12:46)
[2018-04-22] MEDS: ALPRAZolam 0.5 MG TAB PO PRN (13:15)
--- NOTE | 2018-04-22 13:30 | NUR ---
Family member at bedside states the patient is not receiving her current home medications. She states she will bring in a list of the patient's current medications so the med rec can be updated.
--- NOTE | 2018-04-22 15:30 | NUR ---
Patient's sister, Scarlet, at bedside and brought patient's current med list. Patient's med rec updated. Scarlet: [phone].
[2018-04-22] MEDS ORDERED: ONDA-143 PO (16:28)
[2018-04-22] MEDS ORDERED: FERR1TAB17 PO (16:28)
[2018-04-22] MEDS ORDERED: ASPI81TA27 PO (16:28)
[2018-04-22] MEDS ORDERED: MEGE40TA15 PO (16:28)
[2018-04-22] MEDS ORDERED: LISI40TA PO (16:28)
[2018-04-22] MEDS ORDERED: ROPI0.5T PO (16:28)
[2018-04-22] MEDS ORDERED: LACT3000 PO (16:28)
[2018-04-22] MEDS ORDERED: LEVO25TA6 PO (16:28)
[2018-04-22] MEDS ORDERED: CARV12.544 PO (16:28)
[2018-04-22] MEDS ORDERED: CINA30TA2 PO (16:28)
[2018-04-22] MEDS ORDERED: CLOP75TA41 PO (16:28)
[2018-04-22] MEDS ORDERED: TIZA4CAP PO (16:28)
[2018-04-22] MEDS ORDERED: DICY20TA66 PO (16:28)
[2018-04-22] MEDS ORDERED: PROM25TA5 PO (16:28)
--- NOTE | 2018-04-22 18:51 | NUR ---
Patient states pain med is not effective. Page placed to Dr. Llamas.
--- NOTE | 2018-04-22 19:20 | NUR ---
RECEIVED PATIENT LYING IN BED, AWAKE, ALERT, ORIENTED X3. NO S/S OF RESPIRATORY DISTRESS, DENIES SOB AND CHEST PAIN. ORIENTED ON PLAN OF CARE. BED IS LOCKED AND IN LOWEST LEVEL, SIDE RAILS UP X2, BED ALARM ON, CALL LIGHT WITHIN REACH. WILL CONTINUE TO MONITOR
[2018-04-22] MEDS: ASPirin-EC 81 mg tab PO SCH (20:17)
[2018-04-22] MEDS: ATORVASTATIN 20 MG TAB PO SCH (21:37)
[2018-04-22] MEDS: CYCLOBENZAPRINE HCL 10 MG TAB PO SCH (21:37)
[2018-04-22] MEDS: AZITHROMYCIN 500MG/ 250ML 250 ML IV SCH (21:38)
[2018-04-22] MEDS: LACTULOSE 20Gm/30ML SOLN PO SCH (21:44)
[2018-04-22 22:00] VITALS: BP 92/60
[2018-04-22] MEDS ORDERED: PRAMIPEXOLE DIHYDROCHLORIDE MO 0.25 MG TAB PO SCH (22:00)
[2018-04-22 22:30] VITALS: BP 102/68
--- NOTE | 2018-04-22 23:00 | NUR ---
BLISTER ON THE RIGHT HEEL NOTED, PHOTO TAKEN, OPTIFOAM APPLIED
[2018-04-23 05:39] VITALS: BP 127/73
[2018-04-23] MEDS: InsuLIN REG 1unit/0.01ml Soln (100units/ml) SC SCH ×3 (05:55→17:56)
[2018-04-23] MEDS: ACCU-CHEK COMFORT CURVE STRIP VI SCH ×3 (05:56→17:56)
[2018-04-23 06:00] VITALS: BP 102/72
[2018-04-23] MEDS ORDERED: DILTIAZEM HCL 25 MG/5 ML VIAL IV ONE ×2 (06:30→13:15)
--- NOTE | 2018-04-23 06:30 | NUR ---
PATIENT'S HEART RATE RUNNING 135-148 BPM, EKG SHOW AFIB RVR. SHOWED TO Sue PADILLA. RECEIVED ORDER TO TRANSFER PATIENT TO TELEMETRY AND GIVE CARDIZEM 15 MG IV ONCE
[2018-04-23 06:42] VITALS: BP 118/68
--- NOTE | 2018-04-23 07:29 | NUR ---
CARE ENDORSED TO AM SHIFT RN
[2018-04-23 08:00] VITALS: BP 102/72
--- NOTE | 2018-04-23 08:00 | NUR ---
Dr. Morin at bedside made aware that patient has AF with RVR last night and now her HR still 140-150 and she is on oxygen cannular 6 LMP o2 sat 90-91%
[2018-04-23] MEDS: cefTRIAXone 1GM/50ML D5W 50 ML IV SCH (08:33)
[2018-04-23] MEDS: SEVELAMER 800 MG TAB PO SCH ×3 (08:33→17:54)
[2018-04-23] MEDS: Nepro With Carbsteady ButterPecan 8oz Carton PO SCH ×2 (08:33→17:55)
[2018-04-23] MEDS: MORPHINE SULFATE 4 MG/ML SYR/VIAL IV PRN (08:34)
[2018-04-23 09:06] LABS: Albumin 2.3 g/dL (3.4-5.0); Anion Gap 11 (5-15); Blood Urea Nitrogen 34 mg/dL (7-18); Calcium 8.9 mg/dL (8.5-10.1); Carbon Dioxide 29 mmol/L (21-32); Chloride 96 mmol/L (98-107); Glucose 121 mg/dL (74-106); Potassium 5.2 mmol/L (3.5-5.1); Sodium 136 mmol/L (136-145)
[2018-04-23 09:09] LABS: % Iron Saturation 19.9 % (15-50)
[2018-04-23 09:11] LABS: Alanine Aminotransferase < 6 U/L (13-56); Alkaline Phosphatase 305 U/L (45-117); Aspartate Aminotransferase 29 U/L (15-37); BUN/Creatinine Ratio 7.4; GFR African American 13 mL/min; GFR Non-African American 11 mL/min; Total Protein 7.3 g/dL (6.4-8.2)
--- NOTE | 2018-04-23 09:16 | NUR ---
FAMILY REQUESTED TO HOLD P.T. TODAY.
--- NOTE | 2018-04-23 09:24 | NUR ---
OUTBOARD MOTORBOAT RIGGER DR. Dru BAIRES
--- NOTE | 2018-04-23 09:42 | NUR ---
DR. BAIRES AT BEDSIDE, MADE AWARE OF HR 140-150 AND PATIENT ON O2 6 LPM O2 SAT 90%.
[2018-04-23] MEDS: CYCLOBENZAPRINE HCL 10 MG TAB PO SCH ×2 (09:52→22:07)
[2018-04-23] MEDS: ASPirin-EC 81 mg tab PO SCH (09:52)
[2018-04-23] MEDS: CLOPIDOGREL BISULFATE 75 MG TAB PO SCH (09:52)
[2018-04-23] MEDS: ASCORBIC ACID 500 MG TAB PO SCH ×2 (09:52→22:08)
[2018-04-23] MEDS: GABAPENTIN 300 MG CAP PO SCH ×2 (09:52→22:06)
[2018-04-23] MEDS: AMIODARONE HCL 200 MG TAB PO SCH (09:53)
[2018-04-23] MEDS: Pro-Stat SF 30ml Vanilla PO SCH (09:53)
[2018-04-23] MEDS: PANTOPRAZOLE 40 MG TAB PO SCH (09:53)
[2018-04-23] MEDS: LISINOPRIL 10 MG TAB PO SCH (09:54)
[2018-04-23] MEDS: NIFEdipine ER 30 MG TAB PO SCH (09:54)
[2018-04-23] MEDS: NICOTINE 21MG/24 HR TOPICAL PATCH TD SCH (09:55)
[2018-04-23] MEDS: B-COMPLEX W/ C & FOLIC ACID(NEPHROVITE TAB) PO SCH (09:55)
--- NOTE | 2018-04-23 10:30 | NUR ---
WOUND CARE NOTE: PATIENT HAS A NEW WOUND CONCERN AT THIS TIME. BEDSIDE NURSE PHOTOGRAPHED WOUND UPON ASSESSMENT. PATIENT HAS AN INTACT SERUM FILLED BLISTER. NO OPEN OR DRAINING AREAS NOTED. SKIN IS PINK, WITH LIGHT RED PERIWOUND. ADVISED BEDSIDE NURSE TO APPLY RACHAEL FOAM BOOTS TO OFFLOAD HEELS. SKIN/WOUND CARE PLAN UPDATED. WOUND CARE TEAM WILL CONTINUE TO MONITOR. Addendum: 04/23/18 at 1444 by Ruchi Espitia RN Amended: Links added.
[2018-04-23] MEDS: ALPRAZolam 0.5 MG TAB PO PRN ×2 (10:51→22:06)
--- NOTE | 2018-04-23 12:00 | NUR ---
Spoke to Dr. Morin regarding HR 135-150 beat per mins, BP 102/55 RR 18, received new orders, noted and carried out.
--- NOTE | 2018-04-23 12:15 | NUR ---
Per Dr. Morin patient have to transfer to [facility] due to Cardizem drips, malthouse laborer (Jocelyn) notified and Kat YANG) notified.
--- NOTE | 2018-04-23 12:30 | NUR ---
Dr. Sosa at bedside received new orders, noted and carried out.
[2018-04-23 13:00] VITALS: BP 102/55
[2018-04-23] MEDS ORDERED: DILTIAZEM 125mg/125ml BAG KIT 125 ML IV SCH (13:15)
[2018-04-23] MEDS ORDERED: DIGOXIN (250MCG/ML) 2 ML AMPULE IV ONE ×5 (13:15→18:00)
--- NOTE | 2018-04-23 13:45 | NUR ---
IV insertion IV access obtained, via clean sterile technique by inserting 22 gauge catheter at after attempt(s). IV secured properly. No trauma to site. Patient tolerated well.
--- NOTE | 2018-04-23 15:42 | NUR ---
Dr. Krishnamurthy at bedside discussed with patient and made aware of patient is going to [facility].
[2018-04-23 17:00] VITALS: BP 121/62
--- NOTE | 2018-04-23 17:00 | NUR ---
Family and patient at bedside made aware of patient is going to [facility] today at room 261.
--- NOTE | 2018-04-23 17:20 | NUR ---
Called [facility] to give report, spoke to a nurse stated there is a patient here at 261, instructed to talk with Violette YANG) .
--- NOTE | 2018-04-23 17:30 | NUR ---
Kat (YEMI) confirmed me that patient is going to [facility] room 261, will notify family and patient.
--- NOTE | 2018-04-23 17:30 | NUR ---
YEMI (Violette) notified regarding there is no bed available in [facility].
--- NOTE | 2018-04-23 20:33 | NUR ---
Paged MALCOLM regarding patient status Patient running a fib 114 to 120's B/P 108/54 patient asymptomatic HR more stable now. Awaiting call back.
--- NOTE | 2018-04-23 20:59 | NUR ---
YUN called back New orders received read back and verified: Cancel IV Cardizem Down grade to tele Cardizem 30mg PO Q8 start tonight Will continue to monitor
[2018-04-23] MEDS: LACTULOSE 20Gm/30ML SOLN PO SCH (22:00)
[2018-04-23] MEDS: ACETAMINOPHEN 325 MG TAB PO PRN (22:05)
[2018-04-23] MEDS: ATORVASTATIN 20 MG TAB PO SCH (22:05)
[2018-04-23] MEDS: PRAMIPEXOLE DIHYDROCHLORIDE MO 0.25 MG TAB PO SCH (22:07)
[2018-04-23] MEDS: DILTIAZEM HCL 60 MG TAB PO SCH (22:08)
[2018-04-23] MEDS: AZITHROMYCIN 500MG/ 250ML 250 ML IV SCH (22:09)
[2018-04-24] MEDS: MORPHINE SULFATE 4 MG/ML SYR/VIAL IV PRN ×2 (00:18→10:50)
[2018-04-24] MEDS: ACCU-CHEK COMFORT CURVE STRIP VI SCH ×5 (00:18→23:44)
[2018-04-24] MEDS: InsuLIN REG 1unit/0.01ml Soln (100units/ml) SC SCH ×5 (00:30→23:45)
[2018-04-24] MEDS: DILTIAZEM HCL 60 MG TAB PO SCH ×3 (06:00→22:00)
[2018-04-24 06:37] VITALS: BP 153/76
[2018-04-24] MEDS ORDERED: SODIUM CHL 0.9% 1000 ML BAG XX ONE (07:00)
[2018-04-24 07:16] LABS: Alanine Aminotransferase < 6 U/L (13-56); Anion Gap 9 (5-15); Aspartate Aminotransferase 31 U/L (15-37); Blood Urea Nitrogen 49 mg/dL (7-18); Calcium 8.8 mg/dL (8.5-10.1); Carbon Dioxide 27 mmol/L (21-32); Chloride 98 mmol/L (98-107); GFR African American 11 mL/min; GFR Non-African American 9 mL/min; Glucose 139 mg/dL (74-106); Potassium 5.4 mmol/L (3.5-5.1); Sodium 134 mmol/L (136-145)
[2018-04-24 07:19] LABS: Alkaline Phosphatase 334 U/L (45-117)
--- NOTE | 2018-04-24 07:30 | NUR ---
Opening Shift Note Assumed care of patient, awake and alert. Fatigued and sleepy, but aroused easily. No S/S of distress/SOB or pain. Instructed on POC and to call for assist PRN, will continue to monitor for changes Q1hr and PRN.
[2018-04-24 08:00] VITALS: BP 116/60
[2018-04-24 09:00] VITALS: BP 116/60
--- NOTE | 2018-04-24 09:05 | NUR ---
chaperoned Dr. Morin into pts room
--- NOTE | 2018-04-24 09:47 | NUR ---
SPOKE WITH ELAINE THE BRIM CURLER. I INFORMED HER THAT DR. BAIRES WANTS PATIENT TO BE DISCHARGED TO SKILLED FACILITY. ELAINE ACKNOWLEDGED THAT SHE SAW THE ORDER AND WILL START WORKING ON IT.
[2018-04-24] MEDS: Pro-Stat SF 30ml Vanilla PO SCH (10:00)
[2018-04-24] MEDS: CYCLOBENZAPRINE HCL 10 MG TAB PO SCH ×2 (10:33→23:42)
[2018-04-24] MEDS: SEVELAMER 800 MG TAB PO SCH ×3 (10:33→18:23)
[2018-04-24] MEDS: Nepro With Carbsteady ButterPecan 8oz Carton PO SCH ×2 (10:33→18:13)
[2018-04-24] MEDS: AMIODARONE HCL 200 MG TAB PO SCH (10:34)
[2018-04-24] MEDS: NIFEdipine ER 30 MG TAB PO SCH (10:35)
[2018-04-24] MEDS: GABAPENTIN 300 MG CAP PO SCH ×2 (10:35→23:40)
[2018-04-24] MEDS: PANTOPRAZOLE 40 MG TAB PO SCH (10:35)
[2018-04-24] MEDS: ASCORBIC ACID 500 MG TAB PO SCH ×2 (10:36→23:39)
[2018-04-24] MEDS: CLOPIDOGREL BISULFATE 75 MG TAB PO SCH (10:36)
[2018-04-24] MEDS: LISINOPRIL 10 MG TAB PO SCH (10:36)
[2018-04-24] MEDS: NICOTINE 21MG/24 HR TOPICAL PATCH TD SCH (10:37)
[2018-04-24] MEDS: B-COMPLEX W/ C & FOLIC ACID(NEPHROVITE TAB) PO SCH (10:38)
[2018-04-24] MEDS: ASPirin-EC 81 mg tab PO SCH (10:38)
[2018-04-24] MEDS: DIGOXIN (250MCG/ML) 2 ML AMPULE IV SCH (10:39)
[2018-04-24] MEDS: cefTRIAXone 1GM/50ML D5W 50 ML IV SCH (10:39)
--- NOTE | 2018-04-24 12:00 | NUR ---
ELAINE INFORMED ME THAT WE NEED THE PHYSICAL THERAPIST TO EVALUATE THE PATIENT. THE PATIENT NEEDS TO BE ABLE TO KEEP HER SELF IN A CHAIR IN ORDER TO BE SCHEDULED FOR CHAIR TIME WITH HER DIALYSIS. SUE FROM PHYSICAL THERAPY PAGED.
[2018-04-24 12:09] LABS: Folate (Folic Acid) > 24.00 ng/mL (5.38-24)
--- NOTE | 2018-04-24 12:30 | NUR ---
SUE IN TO SEE THE PATIENT BUT LUNCH ARRIVED. HE TOLD ME HE WOULD TRY AGAIN TO GET THE PATIENT UP AND EVALUATE HER.
[2018-04-24 13:00] VITALS: BP 131/61
--- NOTE | 2018-04-24 14:00 | NUR ---
UPON RETURNING TO SEE THE PATIENT SUE NOTICED THAT THE PATIENT WAS ASLEEP AND EXTREMELY FATIGUED. I WAS TOLD BY SUE HE WOULD BE BACK LATER.
--- NOTE | 2018-04-24 16:00 | NUR ---
DIALYSIS TO BE STARTED. I INFORMED ELAINE ABOUT THE DELAYS. THE PATIENT'S DISCHARGE CANNOT BE WORKED ON UNTIL PHYSICAL THERAPY GETS WITH THE PATIENT AND GETS HER UP OUT OF BED AND INTO A CHAIR. THE PATIENT AND FAMILY ARE AWARE OF THERE. PLACEMENT WILL CONTINUE FORWARD TO BEING WORKED ON TOMORROW.
[2018-04-24 17:00] VITALS: BP 117/54
--- NOTE | 2018-04-24 19:45 | NUR ---
Opening Shift Note Assumed care of patient from morning nurse Naresh. Patient is resting with eyes closed with even and unlabored breathing, 2L oxygen nasal cannula. Patient appears to be fatigue and sleep, but arouses to name. No S/S of distress/SOB or pain. Iv 22G to right forearm patent, clean and dry. Iv 22G to right hand is not flushing and will be remove.Instructed on POC and to call for assist. Call light is within reach and bed in lowest position. wool hat flanger just completed dialysis and took 3L off with 4000 units of Heparin. Hr 71, BP 119/63. Per Dialysis nurse patient tolerated treatment well.
--- NOTE | 2018-04-24 20:15 | NUR ---
Family Bedside Family is bedside trying to feed patient. Patient appears to be lethargic. Patient arouses when calling her name, but the family was unable to feed her due to sleepiness. Patient has no s/s of distress or sob. will continue to monitor.
[2018-04-24] MEDS ORDERED: EPOETIN ALFA 4,000 UNIT/ML VL SC ONE (21:00)
[2018-04-24 22:00] VITALS: BP 105/55
[2018-04-24] MEDS: LACTULOSE 20Gm/30ML SOLN PO SCH (22:00)
[2018-04-24] MEDS: AZITHROMYCIN 500MG/ 250ML 250 ML IV SCH (23:29)
[2018-04-24] MEDS: ACETAMINOPHEN 325 MG TAB PO PRN (23:38)
[2018-04-24] MEDS: ATORVASTATIN 20 MG TAB PO SCH (23:39)
--- NOTE | 2018-04-24 23:40 | NUR ---
IV removal: IV 22G to right hand DC'd with clean sterile technique, catheter fully intact. Pressure dressing applied to site. Patient tolerated well.
[2018-04-24] MEDS: PRAMIPEXOLE DIHYDROCHLORIDE MO 0.25 MG TAB PO SCH (23:43)
--- NOTE | 2018-04-25 00:50 | NUR ---
Pain Medication: Patient awakes and is inconsolable stating she is having pain 10/10. Patient requested pain medication. Will give patient PRN medication for pain. see eMAR.
[2018-04-25] MEDS: MORPHINE SULFATE 4 MG/ML SYR/VIAL IV PRN (01:00)
[2018-04-25] MEDS: ALPRAZolam 0.5 MG TAB PO PRN (02:09)
--- NOTE | 2018-04-25 02:09 | NUR ---
Pain reassessment: Reassessed patient. Patient states that she does have a relief to right arm from pain. Patient requested Xanax stated "I am in so much pain that that I just want to be knocked out and I feel anxious". Due to patients level of anxiety will administer medication. See eMar.
--- NOTE | 2018-04-25 04:45 | NUR ---
Spoked with Hospitalist Spoke to Hospitalist Cristobal Ellsworth about pain and swelling in patient's right arm. Hospitalist said "Order ultrasound of arm to be sure no DVT". Will carry out orders. Addendum: 04/25/18 at 0453 by Analisa Cole RN Spoke
[2018-04-25 06:00] VITALS: BP 126/71
[2018-04-25] MEDS: ACCU-CHEK COMFORT CURVE STRIP VI SCH ×4 (06:13→23:32)
[2018-04-25] MEDS: DILTIAZEM HCL 60 MG TAB PO SCH ×3 (06:17→23:34)
[2018-04-25] MEDS: InsuLIN REG 1unit/0.01ml Soln (100units/ml) SC SCH ×4 (06:18→23:31)
--- NOTE | 2018-04-25 07:00 | NUR ---
Closing Shift Note Endorsed care of patient from morning nurse Nneka. Patient is resting with eyes closed with even and unlabored breathing, 2L oxygen nasal cannula. Patient appears to be fatigue, arouses to name. No S/S of distress/SOB or pain. Call light is within reach and bed in lowest position.
--- NOTE | 2018-04-25 07:50 | NUR ---
Opening Shift Note Assumed care of patient, awake and alert and oriented x3. No S/S of distress/SOB or pain. Instructed on POC and to call for assist PRN, will continue to monitor for changes. Addendum: 04/25/18 at 1707 by Nneka Donohue RN RN Incorrect patient
--- NOTE | 2018-04-25 07:55 | NUR ---
Opening Shift Note Assumed care of patient, patient very lethargic and hard to arouse. Patient will wake up but goes to sleep immediately. No S/S of distress/SOB or pain. Instructed on POC and to call for assist PRN, will continue to monitor for changes Q1hr and PRN. Cradle boot in place on right leg.
[2018-04-25] MEDS: Nepro With Carbsteady ButterPecan 8oz Carton PO SCH ×2 (08:00→18:00)
[2018-04-25] MEDS: SEVELAMER 800 MG TAB PO SCH ×3 (08:00→18:05)
--- NOTE | 2018-04-25 08:39 | NUR ---
Dr Morin, [facility], and Family Elham at bedside. Patient still very lethargic and difficult to stay awake. Per Dr Morin he will D/C narcotic pain meds and restoril in order to have patient be more alert during day. Dr Morin made aware that during the night patient was C/O of right arm pain and U/S ordered. Will continue to monitor.
--- NOTE | 2018-04-25 08:39 | NUR ---
Order received per Dr Morin to D/C Xanax and Restoril.
--- NOTE | 2018-04-25 08:50 | NUR ---
PT made aware that Dr Morin would like PT to work with patient and keep up in chair for a couple of hours.
--- NOTE | 2018-04-25 08:52 | NUR ---
CHAPERONED DR. ABIRES INTO PTS ROOM
[2018-04-25 09:00] VITALS: BP 137/61
--- NOTE | 2018-04-25 09:17 | NUR ---
Received order to D/C U/S from Dr Morin. Per Dr Morin, patient is confused at this time and Family member, Elham came up to Dr Morin and asked U/S to be cancelled at this time. Family member was explained reason for exam and R/B but continued to ask for exam to be cancelled. No redness or warmth noted to right arm. Per patient c/o of pain to touch from right IV site. IV discontinued.
[2018-04-25] MEDS: cefTRIAXone 1GM/50ML D5W 50 ML IV SCH (09:49)
[2018-04-25] MEDS: Pro-Stat SF 30ml Vanilla PO SCH (10:00)
[2018-04-25] MEDS: NICOTINE 21MG/24 HR TOPICAL PATCH TD SCH (10:00)
[2018-04-25] MEDS: CLOPIDOGREL BISULFATE 75 MG TAB PO SCH (10:01)
[2018-04-25] MEDS: ASPirin-EC 81 mg tab PO SCH (10:01)
[2018-04-25] MEDS: GABAPENTIN 300 MG CAP PO SCH ×2 (10:02→23:32)
[2018-04-25] MEDS: CYCLOBENZAPRINE HCL 10 MG TAB PO SCH ×2 (10:02→23:33)
[2018-04-25] MEDS: PANTOPRAZOLE 40 MG TAB PO SCH (10:02)
[2018-04-25] MEDS: ASCORBIC ACID 500 MG TAB PO SCH ×2 (10:02→23:31)
[2018-04-25] MEDS: B-COMPLEX W/ C & FOLIC ACID(NEPHROVITE TAB) PO SCH (10:02)
[2018-04-25] MEDS: ACETAMINOPHEN 325 MG TAB PO PRN (10:07)
[2018-04-25] MEDS: AMIODARONE HCL 200 MG TAB PO SCH (10:13)
[2018-04-25] MEDS: NIFEdipine ER 30 MG TAB PO SCH (10:13)
[2018-04-25] MEDS: LISINOPRIL 10 MG TAB PO SCH (10:14)
--- NOTE | 2018-04-25 11:08 | NUR ---
Dr Morin paged and made aware patient and family member requesting for [place] PRN. New order received for Arlington 5/325 mg Q6HP. Will continue to monitor.
[2018-04-25 12:11] LABS: Potassium 5.1 mmol/L (3.5-5.1)
--- NOTE | 2018-04-25 12:11 | NUR ---
Nutrition Follow-up Notes Wt.: 89.7 kg Pt was awake and oriented with no family by bedside. per pt has fair appetite, but is in pain in her arm. per records pt to have HD 04/24. per pt eats as much as she can, drinking nephro. pt is currently on CCHO 60 gm renal std fine chop diet with nephro carb steady bid with prostat 1 packet daily with inadequate PO of avg 50% x 6 per RN doc Est. Needs based on BW (72 kg): 9119-7039 kcal (27-30 kcal/kgBW), 86-93 gms pro (1.2-1.3 gms/kgBW r/t HD wounds). Will continue to monitor pertinent labs and reassess nutrient needs prn Labs: BUN 49 H, CREAT 5.45 H, GLU 139 H, ALB 2.0 L. Skin: Robby scale 17, mod risk, pt's blister on heel and pressure ulcer sacrum per harpoon engagement planning operator. refer to notes for details. noted pt on nephrovite and Vit C GI: Pt had 1 BM yesterday per harpoon engagement planning operator. PES: Altered nutrition related lab values r/t current/chronic medical condition aeb hyperkalemia, mod hypoalb, elev RFT hyperbil, hypocalcemia Inadequate PO intake r.t current medical condition aeb pt`s on HD with loss of appetite and recorded PO < 75% Will continue to monitor PO intake, skin status, pertinent labs and weight trend. F/u in 3-5 days. Rec.: 1.) refer CDE on DC. 2) consider Megace for appetite. 3) continue assistance with meals. 4) continue current plan of care
[2018-04-25 12:16] LABS: Albumin 2.3 g/dL (3.4-5.0); BUN/Creatinine Ratio 7.6; Bilirubin, Total 0.9 mg/dL (0.2-1.0); Calcium 9.8 mg/dL (8.5-10.1)
[2018-04-25 12:20] LABS: Basophils # (auto) 0.1 uL; Basophils % (auto) 1.2 % (0.0-2.0); Eosinophils # (auto) 0.3 uL; Eosinophils % (auto) 3.3 % (0.0-7.0); Hematocrit 38.1 % (36.0-46.0); Hemoglobin 11.8 g/dL (12.2-16.2); Lymphocytes % (auto) 12.2 % (10.0-50.0); Mean Corpuscular Hemoglobin 28.9 pg (28.0-32.0); Mean Corpuscular Volume 93.3 fL (80.0-100.0); Monocytes # (auto) 0.4 uL; Monocytes % (auto) 5.3 % (0.0-12.0); Neutrophils # (auto) 6.4 uL; Nucleated Red Blood Cells % 0.1 %; Platelet Count (auto) 446 10^3/uL (140-450); Red Blood Cells 4.08 10^6/uL (4.0-5.20); Red Cell Distribution Width 17.4 % (11.8-14.3); White Blood Cell 8.2 10^3/uL (4.4-10.8)
[2018-04-25 13:00] VITALS: BP 141/72
--- NOTE | 2018-04-25 13:10 | NUR ---
WOUND CARE Wound care provided to sacral wound. Patient was up in chair earlier and unable to do wound care then. Wound pictures taken in case pt is D/C today. Patient tolerated procedure well and will continue to monitor.
--- NOTE | 2018-04-25 13:49 | NUR ---
Patient continue to refuse IV start. Explained R/B yet continues to refuse since. she has RA pain and believes from all IV starts and lab draws. Will continue to attempt and monitor.
--- NOTE | 2018-04-25 14:55 | NUR ---
Patient continue to refuse IV start. Explained R/B yet continues to refuse since. she has RA pain and believes from all IV starts and lab draws. Will continue to attempt and monitor. Dr Morin paged and made aware that pt continues to refuse IV start. Dr Morin also made aware K+5.1. No new orders received.
--- NOTE | 2018-04-25 16:15 | NUR ---
assessment Patient is a 52 year old female who is alert and oriented. Patient is total care right now. Prior to admission patient lived home with family and functioned with the help of her daughter, granddaughter and niece. Patient has a wheelchair and 02 for home use. Patient is on dialysis with [facility] M-W- at 9am. Patients PCP is DR Jo. Patient is very weak. Patient will benefit from SNF placement post discharge. I informed patient she has a ss consult for SNF for PT and Wound care. Patient and family agrees. Patient and family request [facility]. MD order has been sent to [facility]. Per Cheri at [facility] she has accepted patient and will assign room in the AM. Patient has an advanced directive and POA. Patient verbalized understanding and agreed to discharge plan. Addendum: 04/25/18 at 1633 by Francy SHERMAN Amended: Links added.
[2018-04-25 17:00] VITALS: BP 147/66
[2018-04-25] MEDS: HYDROcodone-ACET 5/325MG TAB PO PRN (18:06)
--- NOTE | 2018-04-25 19:05 | NUR ---
Patient care and report handed off to Johanny NAVARRO and Raheem NAVARRO.
--- NOTE | 2018-04-25 19:45 | NUR ---
Opening Shift Note Assumed care of patient from morning nurse Nneka. Patient is awake, alert and oriented x 3 with even and unlabored breathing, 2L oxygen nasal cannula. No S/S of distress/SOB or pain. Instructed on POC and to call for assist. Call light is within reach and bed in lowest position with bed alarm on.
[2018-04-25 22:00] VITALS: BP 125/72
[2018-04-25] MEDS: AZITHROMYCIN 500MG/ 250ML 250 ML IV SCH (22:00)
[2018-04-25] MEDS: LACTULOSE 20Gm/30ML SOLN PO SCH (22:00)
[2018-04-25] MEDS: PRAMIPEXOLE DIHYDROCHLORIDE MO 0.25 MG TAB PO SCH (23:33)
[2018-04-25] MEDS: ATORVASTATIN 20 MG TAB PO SCH (23:33)
[2018-04-26 05:00] VITALS: BP 128/62
[2018-04-26] MEDS: DILTIAZEM HCL 60 MG TAB PO SCH ×2 (06:00→13:46)
--- NOTE | 2018-04-26 06:05 | NUR ---
Bradycardia Patient's HR range from 45-65 A Fib. Assessed patient, asymptomatic. No change in mentation alert and orientated x4. B/P 122/56 HR 55-63 99% on 2 L N/C. Will continue to monitor.
[2018-04-26] MEDS: InsuLIN REG 1unit/0.01ml Soln (100units/ml) SC SCH ×2 (06:12→12:00)
[2018-04-26] MEDS: ACCU-CHEK COMFORT CURVE STRIP VI SCH ×2 (06:12→12:00)
[2018-04-26] MEDS ORDERED: SODIUM CHL 0.9% 1000 ML BAG XX ONE (07:00)
--- NOTE | 2018-04-26 07:45 | NUR ---
OPENING SHIFT NOTE ASSUMED CARE OF PATIENT. PATIENT RESTING COMFORTABLY IN BED, RESPIRATIONS EVEN AND UNLABORED. NO S/S OF DISTRESS OR SOB NOTED. BED IN LOWEST LOCKED POSITION, CALL LIGHT WITHIN REACH. WILL CONTINUE TO MONITOR.
[2018-04-26] MEDS: Nepro With Carbsteady ButterPecan 8oz Carton PO SCH (08:00)
--- NOTE | 2018-04-26 08:30 | NUR ---
AT BEDSIDE DR Dru BAIRES AT BEDSIDE AT THIS TIME. NO NEW ORDERS RECEIVED. CONTINUING TO MONITOR.
--- NOTE | 2018-04-26 08:33 | NUR ---
CHAPERONED DR. BAIRES INTO PTS ROOM
[2018-04-26 08:34] LABS: Hematocrit 34.2 % (36.0-46.0)
[2018-04-26 08:40] LABS: % Iron Saturation 19.9 % (15-50)
[2018-04-26 09:00] VITALS: BP 128/65
[2018-04-26] MEDS: cefTRIAXone 1GM/50ML D5W 50 ML IV SCH ×2 (09:00→09:46)
[2018-04-26 09:25] VITALS: BP 124/78
[2018-04-26] MEDS: PANTOPRAZOLE 40 MG TAB PO SCH (09:44)
[2018-04-26] MEDS: SEVELAMER 800 MG TAB PO SCH ×2 (09:44→12:00)
[2018-04-26] MEDS: GABAPENTIN 300 MG CAP PO SCH (09:44)
[2018-04-26] MEDS: ASCORBIC ACID 500 MG TAB PO SCH (09:44)
[2018-04-26] MEDS: AMIODARONE HCL 200 MG TAB PO SCH (09:44)
[2018-04-26] MEDS: B-COMPLEX W/ C & FOLIC ACID(NEPHROVITE TAB) PO SCH (09:45)
[2018-04-26] MEDS: ASPirin-EC 81 mg tab PO SCH (09:45)
[2018-04-26] MEDS: NIFEdipine ER 30 MG TAB PO SCH (09:46)
[2018-04-26] MEDS: Pro-Stat SF 30ml Vanilla PO SCH (09:46)
[2018-04-26] MEDS: DIGOXIN (250MCG/ML) 2 ML AMPULE IV SCH (09:46)
[2018-04-26] MEDS: CLOPIDOGREL BISULFATE 75 MG TAB PO SCH (09:46)
[2018-04-26] MEDS: LISINOPRIL 10 MG TAB PO SCH (09:47)
[2018-04-26] MEDS: NICOTINE 21MG/24 HR TOPICAL PATCH TD SCH (09:47)
[2018-04-26] MEDS ORDERED: PRAMIPEXOLE DIHYDROCHLORIDE MO 0.25 MG TAB PO SCH (10:00)
--- NOTE | 2018-04-26 11:33 | NUR ---
re-assessment Patient is now discharged. Per Cheri at [facility] patient will go to room 52b and Dr Ramos is the accepting MD. [facility] to transport at 5pm today post discharge. Scarlet patient sister has been notified. Patient agreed to discharge plan to SNF. Addendum: 04/26/18 at 1135 by Francy SHERMAN Amended: Links added.
[2018-04-26 13:00] VITALS: BP 144/77
[2018-04-26] MEDS: HYDROcodone-ACET 5/325MG TAB PO PRN (17:00)
--- NOTE | 2018-04-26 17:15 | NUR ---
DISCHARGED PATIENT DISCHARGED TO [facility] AFTER ALL DISCHARGE INSTRUCTIONS GIVEN TO PATIENT AND SISTER LEO AND ALL QUESTIONS AND CONCERNS ADDRESSED. PATIENT SHOWED NO S/S OF DISTRESS OR SOB NOTED UPON DISCHARGE. TELE REMOVED, CLEANED AND RETURNED TO [facility]. PATIENT HAD NO IV ACCESS UPON DISCHARGE.
--- NOTE | 2018-04-26 17:20 | NUR ---
REPORT REPORT GIVEN TO VALENTINO NAVARRO AT [facility] AT THIS TIME. NOTIFIED PATIENT ON HER WAY.
--- NOTE | 2018-04-26 17:30 | NUR ---
FAXED FAXED COPIES OF MAR/DISCHARGE INSTRUCTIONS AT THIS TIME. AWAITING CONFIRMATION.
[2018-04-26] MEDS ORDERED: EPOETIN ALFA 10,000 UNIT/1 ML VIAL SC ONE (21:00)
[2018-04-26] MEDS ORDERED: CYCLOBENZAPRINE HCL 10 MG TAB PO SCH (22:00)
== END 2018-04-26 17:15 | DRG 193 ==
LOC: ER 11:14 → EDBD 11:14 → CENTRAL 20:42 → TELE-CENTR 04-23 07:06
PROVIDERS: ADMIT Nurse Practitioner; ATTEND Family Medicine
PROC: 5A1D70Z Performance of Urinary Filtration, Intermittent, Less than 6 Hours Per Day (ICD-10-PCS; 2018-04-20)
PROC: 5A1D70Z Performance of Urinary Filtration, Intermittent, Less than 6 Hours Per Day (ICD-10-PCS; 2018-04-22)
PROC: 5A1D70Z Performance of Urinary Filtration, Intermittent, Less than 6 Hours Per Day (ICD-10-PCS; 2018-04-24)
PROC: 5A1D70Z Performance of Urinary Filtration, Intermittent, Less than 6 Hours Per Day (ICD-10-PCS; principal; 2018-04-26)
DX: J18.1 Lobar pneumonia, unspecified organism (principal); N18.6 End stage renal disease; G92 Toxic encephalopathy; E87.1 Hypo-osmolality and hyponatremia; E44.0 Moderate protein-calorie malnutrition; I13.2 Hypertensive heart and chronic kidney disease with heart failure and with stage 5 chronic kidney disease, or end stage renal disease; J44.0 Chronic obstructive pulmonary disease with (acute) lower respiratory infection; I50.40 Unspecified combined systolic (congestive) and diastolic (congestive) heart failure; G45.9 Transient cerebral ischemic attack, unspecified; E87.5 Hyperkalemia; I48.91 Unspecified atrial fibrillation; I50.9 Heart failure, unspecified; E11.22 Type 2 diabetes mellitus with diabetic chronic kidney disease; E11.42 Type 2 diabetes mellitus with diabetic polyneuropathy; E11.51 Type 2 diabetes mellitus with diabetic peripheral angiopathy without gangrene; Z86.73 Personal history of transient ischemic attack (TIA), and cerebral infarction without residual deficits; E11.65 Type 2 diabetes mellitus with hyperglycemia; G25.81 Restless legs syndrome; E11.43 Type 2 diabetes mellitus with diabetic autonomic (poly)neuropathy; E61.1 Iron deficiency; E78.5 Hyperlipidemia, unspecified; F17.210 Nicotine dependence, cigarettes, uncomplicated; G47.00 Insomnia, unspecified; G56.02 Carpal tunnel syndrome, left upper limb; I08.1 Rheumatic disorders of both mitral and tricuspid valves; I25.10 Atherosclerotic heart disease of native coronary artery without angina pectoris; I27.20 Pulmonary hypertension, unspecified; I70.0 Atherosclerosis of aorta; K31.84 Gastroparesis; I08.0 Rheumatic disorders of both mitral and aortic valves; I72.4 Aneurysm of artery of lower extremity; Z79.02 Long term (current) use of antithrombotics/antiplatelets; Z79.82 Long term (current) use of aspirin; Z79.899 Other long term (current) drug therapy; Z82.49 Family history of ischemic heart disease and other diseases of the circulatory system; Z83.3 Family history of diabetes mellitus; Z89.512 Acquired absence of left leg below knee; Z90.710 Acquired absence of both cervix and uterus; Z95.1 Presence of aortocoronary bypass graft; Z98.61 Coronary angioplasty status; Z99.2 Dependence on renal dialysis; Z99.81 Dependence on supplemental oxygen; Z88.2 Allergy status to sulfonamides; Z88.8 Allergy status to other drugs, medicaments and biological substances; Z91.048 Other nonmedicinal substance allergy status; Z90.49 Acquired absence of other specified parts of digestive tract; Z79.84 Long term (current) use of oral hypoglycemic drugs
CPT/HCPCS: 36415; 70450; 70551; 71045; 73030; 80053; 80061; 82607; 82728; 82746; 82962; 83540; 83550; 83735; 83880; 84132; 84484; 85014; 85018; 85025; 85610; 85730; 90935; 93005; 93306; 93886; 93926; 93930; 93971; 94761; 96365; 96367; 96375; 97163; G0378; J0610; J0696; J0885; J1642; J1815; J2405